=== PATIENT | female | born 1940 | race Caucasian/White ===

== ENCOUNTER 2018-11-02 11:30 | Emergency (ER) | payer OTHER ==
[~2018-11-02] VITALS: Ht 157.5 cm; Wt 73.5 kg
[2018-11-02 11:35] VITALS: Ht 157.5 cm; Wt 73.5 kg
[2018-11-02 12:23] LABS: BASOPHIL % 0.5 % (0-2); PLATELET COUNT 141 x10^3mcL (130-400)
[2018-11-02 12:26] LABS: RED CELL DISTRIBUTION WIDTH 16.1 % (11.5-14.5)
[2018-11-02 12:34] LABS: CALCIUM 9.1 mg/dL (8.5-10.1); CARBON DIOXIDE 35.2 mmol/L (21-32); CHLORIDE SERUM 104 mmol/L (98-107); CREATININE SERUM 0.6 mg/dL (0.6-1.0); GLUCOSE SERUM 133 mg/dL (74-106); POTASSIUM SERUM 4.9 mmol/L (3.5-5.1); SODIUM SERUM 142 mmol/L (136-145)
[2018-11-02 12:46] LABS: ALBUMIN 3.6 g/dL (3.4-5.0); ALKALINE PHOSPHATASE 64 U/L (46-116); ALT/SGPT 50 U/L (14-59); AMYLASE 47 U/L (25-115); AST/SGOT 24 U/L (15-37); BILIRUBIN TOTAL 0.5 mg/dL (0.20-1.00); CHOLESTEROL 186 mg/dL (<200); HDL CHOLESTEROL 60 mg/dL (40-60); LIPASE 101 IU/L (73-393); T4(THYROXINE) 7.6 ug/dL (4.7-13.3); TOTAL PROTEIN, SERUM 6.6 g/dL (6.4-8.2)
[2018-11-02 13:08] LABS: microscopic required? NO
[2018-11-02 13:20] LABS: urine erythrocyte NEGATIVE (NEGATIVE)
[2018-11-02 14:57] VITALS: BP 118/74
== END 2018-11-02 14:57 | disposition home or self-care (01) ==
LOC: ED 11:30
PROVIDERS: Emergency Medicine
DX: E87.70 Fluid overload, unspecified (principal); I45.10 Unspecified right bundle-branch block; E11.9 Type 2 diabetes mellitus without complications; I10 Essential (primary) hypertension; Z90.710 Acquired absence of both cervix and uterus; Z98.890 Other specified postprocedural states
CPT/HCPCS: 83880; J1940

== ENCOUNTER 2019-03-09 14:07 | Emergency (ER) | payer OTHER ==
[~2019-03-09] VITALS: Ht 154.9 cm; Wt 69.9 kg
[2019-03-09 14:12] VITALS: Ht 154.9 cm; Wt 69.9 kg
[2019-03-09 15:01] LABS: BASOPHIL % 0.9 % (0-2)
[2019-03-09 15:07] LABS: RED CELL DISTRIBUTION WIDTH 15.3 % (11.5-14.5)
[2019-03-09 15:28] LABS: CALCIUM 9.1 mg/dL (8.5-10.1); CHLORIDE SERUM 103 mmol/L (98-107); CREATININE SERUM 0.8 mg/dL (0.6-1.0); GLUCOSE SERUM 126 mg/dL (74-106); POTASSIUM SERUM 3.8 mmol/L (3.5-5.1); SODIUM SERUM 141 mmol/L (136-145)
[2019-03-09 15:40] LABS: ALBUMIN 3.9 g/dL (3.4-5.0); ALKALINE PHOSPHATASE 69 U/L (46-116); ALT/SGPT 81 U/L (14-59); AST/SGOT 54 U/L (15-37); BILIRUBIN TOTAL 0.6 mg/dL (0.20-1.00); CHOLESTEROL 165 mg/dL (<200); HDL CHOLESTEROL 45 mg/dL (40-60); LIPASE 102 IU/L (73-393); TOTAL PROTEIN, SERUM 7.2 g/dL (6.4-8.2)
[2019-03-09 15:58] LABS: PLATELET COUNT 123 x10^3mcL (130-400)
[2019-03-09 16:16] LABS: microscopic required? NO
[2019-03-09 16:24] LABS: urine erythrocyte NEGATIVE (NEGATIVE)
[2019-03-09 17:54] VITALS: BP 106/59
[2019-03-10] MEDS ORDERED: INVOKAMET1 TAB PO (18:37)
[2019-03-10] MEDS ORDERED: COZAAR100 MG PO (18:37)
[2019-03-10] MEDS ORDERED: PROAIR HFA8.5 GM (18:38)
[2019-03-10] MEDS ORDERED: ASPIR 8181 MG PO (18:38)
[2019-03-10] MEDS ORDERED: CARVEDILOL6.25 M1 PO (18:38)
[2019-03-10] MEDS ORDERED: AUG500 (18:38)
[2019-03-10] MEDS ORDERED: FLOVENT DI100 MCG/A1 (18:39)
== END 2019-03-09 17:54 | disposition home or self-care (01) ==
LOC: ED 14:07
PROVIDERS: Emergency Medicine
DX: J98.01 Acute bronchospasm (principal); R74.0 Nonspecific elevation of levels of transaminase and lactic acid dehydrogenase [LDH]; R73.09 Other abnormal glucose; I10 Essential (primary) hypertension; Z90.710 Acquired absence of both cervix and uterus; Z98.890 Other specified postprocedural states
CPT/HCPCS: 36600; 82962; 83880; J2930; J7030; J7613; J7644; Q0092

== ENCOUNTER 2019-03-10 15:23 | Inpatient (IN) | payer OTHER ==
[~2019-03-10] VITALS: Ht 134.6 cm; Wt 66.7 kg
[2019-03-10 15:25] VITALS: Ht 134.6 cm; Wt 66.7 kg
--- NOTE | 2019-03-10 15:49 | NUR ---
PT RESTING IN BED, AAOX4 WITH C/O CONGESTED COUGH WITH INABILITY TO REST AT NIGHT. PT WAS SEEN HERE YESTERDAY AND WAS TOLD TO COME BACK TODAY FOR ABNORMAL LABS. PT STATES SHE HAD SOME RELIEF OF SYMPTOMS WITH MEDICATIONS GIVEN YESTERDAY BUT STILL HAD DIFFICULTY SLEEPING DUE TO PERSISITANT COUGH. PT NOTED TO HAVE CONGESTION WITH CONGESTED COUGH, NO SIGNS OF DISTRESS. FAMILY AT BEDSIDE.
--- NOTE | 2019-03-10 16:03 | NUR ---
DR WARREN AT BEDSIDE TO [facility]
--- NOTE | 2019-03-10 16:26 | NUR ---
LAB AT BEDSIDE
[2019-03-10 16:49] LABS: BASOPHIL % 0.2 % (0-2); PLATELET COUNT 144 x10^3mcL (130-400)
[2019-03-10 16:50] LABS: RED CELL DISTRIBUTION WIDTH 14.8 % (11.5-14.5)
--- NOTE | 2019-03-10 17:00 | NUR ---
PT. NOTED TO HAVE REDNESS AND IRRITATION TO LOWER ABD SKIN FOLDS.
[2019-03-10 17:05] LABS: CALCIUM 8.7 mg/dL (8.5-10.1); CARBON DIOXIDE 29.4 mmol/L (21-32); CHLORIDE SERUM 107 mmol/L (98-107); CREATININE SERUM 0.6 mg/dL (0.6-1.0); GLUCOSE SERUM 122 mg/dL (74-106); POTASSIUM SERUM 4.3 mmol/L (3.5-5.1); SODIUM SERUM 143 mmol/L (136-145)
[2019-03-10 17:10] LABS: ALBUMIN 3.7 g/dL (3.4-5.0); ALKALINE PHOSPHATASE 63 U/L (46-116); ALT/SGPT 66 U/L (14-59); AST/SGOT 37 U/L (15-37)
--- NOTE | 2019-03-10 17:47 | NUR ---
PT. AMBULATED TO RESTROOM TO VOID.
[2019-03-10] MEDS ORDERED: INVOKAMET1 TAB PO (18:37)
[2019-03-10] MEDS ORDERED: COZAAR100 MG PO (18:37)
[2019-03-10] MEDS ORDERED: AUG500 (18:38)
[2019-03-10] MEDS ORDERED: PROAIR HFA8.5 GM (18:38)
[2019-03-10] MEDS ORDERED: ASPIR 8181 MG PO (18:38)
[2019-03-10] MEDS ORDERED: CARVEDILOL6.25 M1 PO (18:38)
[2019-03-10] MEDS ORDERED: FLOVENT DI100 MCG/A1 (18:39)
--- NOTE | 2019-03-10 18:58 | NUR ---
REPORT CALLED TO PATRICA RN FOR FURTHER CARE OF PATIENT. ALL QUESTIONS AND CONCERNS ADDRESSED. INFORMED OF POSITIVE BLOOD CULTURES AND COMPLETION OF SEPSIS CHECKLIST.
--- NOTE | 2019-03-10 19:09 | NUR ---
PATIENT DAUGHTER JASON CHRISTIANSON #[phone]
--- NOTE | 2019-03-10 19:24 | NUR ---
PT. TRANSFERED TO TELE DEPARTMENT FOR FURTHER EVAL AND CARE. PT. AAOX4, TALKING AND RESPONDING APPROPRIATELY, BREATHING E/U. NOT IN ANY APARENT DISTRESS AT THIS TIME. PT. STABLE AT TIME OF TRANSFER.
[2019-03-10 20:24] VITALS: BP 158/76
--- NOTE | 2019-03-10 20:38 | NUR ---
RECEIVED PT FROM ER, PT ADMIT FOR PNA, BACTERMIA, PT IS A/O X4, VERBAL RESPONSIVE, LUNG SOUND MILD CONGESTED. CONSTANTLY DRY COUGH, DENY ANY SOB AT THIS MOMENT, PO2 96% IN ROOM AIR. PT IS ON TELE 20, NSR, DENY ANY CHEST PAIN OR DISCOMFORT, BOWEL SOUND PRESENT ALL 4 QUADANTS, NO DISTENTION, NO TENDER. PEDAL PULSE PRESENT BOTH FEET, NO EDEMA, IV AT RIGHT WRIST, NO LEAKING, NO INFILTRATION. ALL ADLS ASSIST, ALL NEED MET, CALL LIGHT IN REACH, WILL CONTINUE TO MONITOR.
--- NOTE | 2019-03-10 21:20 | NUR ---
DR MARTINEZ WAS CALLED FOR ADMISSION ORDERS, GIVEN AND NOTED. LACTIC ACID 2.5, DR MARTINEZ AWARE. IVF NS AT 75ML/HR INFUSING VIA PERIPHERAL LINE. DUE MEDICATIONS GIVEN AND WELL TOLERATED.
--- NOTE | 2019-03-10 23:37 | NUR ---
HS SNACK GIVEN AND WELL TOLERATED. STILL WITH INTERMITTENT PRODUCTIVE COUGH, SOLUMEDTOL 60MG/ IVP ROUTINE MEDICATION. CALL LIGHT GERARDO ELIZONDO.
--- NOTE | 2019-03-11 02:37 | NUR ---
AMBULATED TO BATHROOM FOR PERSONAL NEEDS. KEPT CLEAN AND DRY.
[2019-03-11 04:59] VITALS: BP 158/76
--- NOTE | 2019-03-11 05:20 | NUR ---
C/O OF BEING NAUSEATED, ZOFRAN 4MG IVP PRN MEDCIATION . ABLE TO REPOSITION SELF IN BED. STILL WITH INTERMITTENT PRODUCTIVE COUGH. PT ABLE TO EXPECTORATE SECRETIONS. KEPT CLEAN AND DRY. ALL NEEDS ATTENDED.
[2019-03-11 06:29] LABS: BASOPHIL % 0.3 % (0-2)
[2019-03-11 06:50] LABS: ALKALINE PHOSPHATASE 51 U/L (46-116); ALT/SGPT 58 U/L (14-59); AST/SGOT 45 U/L (15-37); BILIRUBIN TOTAL 0.37 mg/dL (0.20-1.00); CALCIUM 7.9 mg/dL (8.5-10.1); CARBON DIOXIDE 27.4 mmol/L (21-32); CHLORIDE SERUM 110 mmol/L (98-107); CREATININE SERUM 0.6 mg/dL (0.6-1.0); GLUCOSE SERUM 107 mg/dL (74-106); POTASSIUM SERUM 4.2 mmol/L (3.5-5.1); SODIUM SERUM 144 mmol/L (136-145)
[2019-03-11 06:56] LABS: ALBUMIN 3.2 g/dL (3.4-5.0); TOTAL PROTEIN, SERUM 6.1 g/dL (6.4-8.2)
--- NOTE | 2019-03-11 07:25 | NUR ---
RECEIVED PT FROM DARREN MCKNIGHT. PT AA/OX4 WALKING IN ROOM. GAIT STEADY. NO S/S OF ACUTE DISTRESS. DENIES PAIN. NO N/V. DENIES SOB ON ROOM AIR. C/O CONTINUOUS CONGESTED COUGH. RR EVEN/SHALLOW/UNLABORED AT THIS TIME. NO FEVER, NO CHILLS. CALM/COOPERATIVE. DENIES CHEST PAIN. NSR ON TELE 20. IV WNL TO RIGHT WRIST. IVF FLOWING. INSTRUCTED TO USE CALL LIGHT TO CALL FOR ASSISTANCE PRN. VERBALIZED UNDERSTANDING. BED IN LOW POSITION. CALL LIGHT WITHIN REACH. WILL CONT. TO MONITOR.
[2019-03-11 07:43] LABS: PLATELET COUNT 115 x10^3mcL (130-400); RED CELL DISTRIBUTION WIDTH 14.9 % (11.5-14.5)
[2019-03-11 08:33] VITALS: BP 167/67
[2019-03-11 12:45] VITALS: BP 129/52
--- NOTE | 2019-03-11 12:48 | NUR ---
PT AA/OX4 LAYING IN BED. NO S/S OF ACUTE DISTRESS. DENIES SOB AT THIS TIME. DRY COUGH NOTED. NO PAIN. IVS WNL TO LFA AND LEFT WRIST. IVF FLOWING TO LFA. CALM/COOPERATIVE. BED IN LOW POSITION. CALL LIGHT WITHIN REACH. WILL CONT. TO MONITOR.
--- NOTE | 2019-03-11 12:50 | NUR ---
PT AA/OX4 LAYING IN BED. NO S/S OF ACUTE DISTRESS. DENIES SOB AT THIS TIME. DRY COUGH NOTED. NO PAIN. IVS WNL TO RFA AND RIGHT WRIST. IVF FLOWING TO LFA. CALM/COOPERATIVE. BED IN LOW POSITION. CALL LIGHT WITHIN REACH. WILL CONT. TO MONITOR.
--- NOTE | 2019-03-11 15:07 | NUR ---
DAUGHTER AT BEDSIDE, ERICK RAMEY, CONTACT NUMBER [phone]
[2019-03-11 16:46] VITALS: BP 142/65
[2019-03-11 17:43] VITALS: BP 142/65
--- NOTE | 2019-03-11 18:13 | NUR ---
PT BEING DISCHARGED TO HOME. AWAKE, ALERT, ORIENTED X4. NO S/S OF ACUTE DISTRESS. NO SOB ON ROOM AIR. C/O DRY COUGH. NO CHEST PAIN. TELE REMOVED. CALM/COOPERATIVE. DISCHARGE EDUCATION PROVIDED TO PATIENT AND FAMILY, INSTRUCTED TO FOLLOW UP WITH PCP AT UPCOMING APPT. PT VERBALIZED UNDERSTANDING. IVS REMOVED FROM RFA, CATHETERS IN TACT. PRESSURE APPLIED. BELONGINGS WITH PATIENT.
--- NOTE | 2019-03-11 18:30 | NUR ---
PT TAKEN TO LOBBY BY DELMAR EVERETT BY WHEELCHAIR. AWAKE, ALERT, ORIENTED X4. NO S/S OF ACUTE DISTRESS. NO SOB ON ROOM AIR. BELONGINGS WITH PATIENT. ACCOMPANIED BY FAMILY.
== END 2019-03-11 18:30 | disposition home or self-care (01) | DRG 871 ==
LOC: ED 15:23 → DU 18:04
PROVIDERS: Emergency Medicine; Internal Medicine; ADMIT Internal Medicine Pulmonary Disease
DX: R78.81 Bacteremia (principal); J18.0 Bronchopneumonia, unspecified organism; I10 Essential (primary) hypertension; E11.9 Type 2 diabetes mellitus without complications; M54.30 Sciatica, unspecified side; Z79.84 Long term (current) use of oral hypoglycemic drugs
CPT/HCPCS: 82962; 87804; G0378; J0456; J0696; J2405; J7030; J7050; J7060

== ENCOUNTER 2019-07-02 16:33 | Inpatient (IN) | payer OTHER ==
[~2019-07-02] VITALS: Ht 152.4 cm; Wt 64.6 kg
[~2019-07-02 16:33] MED LIST: ASPIR 8181 MG PO; AUG500; CARVEDILOL6.25 M1 PO; COZAAR100 MG PO; FLOVENT DI100 MCG/A1; INVOKAMET1 TAB PO; PROAIR HFA8.5 GM
[2019-07-02 18:07] LABS: BASOPHIL % 0.3 % (0-2); PLATELET COUNT 200 x10^3mcL (130-400); RED CELL DISTRIBUTION WIDTH 14.4 % (11.5-14.5)
[2019-07-02 18:28] LABS: CALCIUM 9.4 mg/dL (8.5-10.1); CHLORIDE SERUM 100 mmol/L (98-107); CREATININE SERUM 0.7 mg/dL (0.6-1.0); GLUCOSE SERUM 138 mg/dL (74-106); POTASSIUM SERUM 4.8 mmol/L (3.5-5.1); SODIUM SERUM 138 mmol/L (136-145)
[2019-07-02 18:32] LABS: ALBUMIN 3.8 g/dL (3.4-5.0); ALKALINE PHOSPHATASE 94 U/L (46-116); ALT/SGPT 49 U/L (14-59); AST/SGOT 41 U/L (15-37); BILIRUBIN TOTAL 0.5 mg/dL (0.20-1.00); TOTAL PROTEIN, SERUM 8.2 g/dL (6.4-8.2)
[2019-07-02] MEDS ORDERED: BUPROPION HYDR150 M1 PO (22:22)
[2019-07-02] MEDS ORDERED: COZAAR50 M1 PO (22:22)
[2019-07-02] MEDS ORDERED: ESCITALOPRAM OX10 MG PO (22:23)
[2019-07-02 23:07] VITALS: BP 169/82
[2019-07-02 23:09] VITALS: BP 152/71
[2019-07-02 23:10] VITALS: Ht 152.4 cm; Wt 64.6 kg
[2019-07-03 06:24] VITALS: BP 118/47
[2019-07-03 06:37] LABS: BASOPHIL % 0.3 % (0-2); PLATELET COUNT 171 x10^3mcL (130-400); RED CELL DISTRIBUTION WIDTH 14.5 % (11.5-14.5)
[2019-07-03 07:11] LABS: ALKALINE PHOSPHATASE 85 U/L (46-116); ALT/SGPT 36 U/L (14-59); AST/SGOT 30 U/L (15-37); BILIRUBIN TOTAL 0.55 mg/dL (0.20-1.00); CALCIUM 9.1 mg/dL (8.5-10.1); CARBON DIOXIDE 30.6 mmol/L (21-32); CHLORIDE SERUM 105 mmol/L (98-107); CREATININE SERUM 0.7 mg/dL (0.6-1.0); GLUCOSE SERUM 96 mg/dL (74-106); POTASSIUM SERUM 4.9 mmol/L (3.5-5.1); SODIUM SERUM 142 mmol/L (136-145); TOTAL PROTEIN, SERUM 7.1 g/dL (6.4-8.2)
[2019-07-03 07:18] LABS: ALBUMIN 3.1 g/dL (3.4-5.0)
[2019-07-03 10:00] VITALS: BP 114/62
[2019-07-03 14:02] VITALS: BP 131/58
[2019-07-03] MEDS ORDERED: LEVAQUIN750 MG PO (14:59)
[2019-07-03 16:45] VITALS: BP 114/46
[2019-07-03 18:23] VITALS: BP 114/46
== END 2019-07-03 18:35 | disposition home or self-care (01) | DRG 195 ==
LOC: ED 16:33 → DU 20:22
PROVIDERS: Emergency Medicine; Internal Medicine; ADMIT Hospitalist
DX: J18.9 Pneumonia, unspecified organism (principal); E11.9 Type 2 diabetes mellitus without complications; Z79.84 Long term (current) use of oral hypoglycemic drugs
CPT/HCPCS: 83880; 87804; G0378; J1650; J1956; J2405; J7030; J7620